=== PATIENT | male | born 1975 | race African-American/Black ===

== ENCOUNTER 2018-05-12 19:03 | Emergency (ER) | payer BC, SELFPAY ==
[2018-05-12] MEDS ORDERED: METHYLPREDNISOLONE 125 MG INJ ONE (20:50)
[2018-05-12] MEDS ORDERED: DIPHENHYDRAMINE 50 MG/ML VIAL ONE (20:51)
[2018-05-12] MEDS ORDERED: FAMOTIDINE 20 MG/2 ML VIAL IV ONE (20:51)
--- NOTE | 2018-05-12 21:38 | ER ---
Nurse's Notes [facility] Name: Luba Flowers Age: 43 yrs Sex: Male : 1975 Arrival Date: 05/12/2018 Time: 19:07 Bed 28 Private MD: None, None Diagnosis: Allergic reaction Presentation: 05/12 19:12 Presenting complaint: Patient states: Rash all over body starting on Monday, itchy. la1 Transition of care: patient was not received from another setting of care. Onset of symptoms was May 12, 2018. Risk Assessment: Do you want to hurt yourself or someone else? Patient reports no desire to harm self or others. Initial Sepsis Screen: Does the patient meet any 2 criteria? No. Patient's initial sepsis screen is negative. Does the patient have a suspected source of infection? No. Patient's initial sepsis screen is negative. Care prior to arrival: None. 19:12 Method Of Arrival: Ambulatory la1 19:12 Acuity: YOLANDA 4 la1 Historical: - Allergies: 19:13 No Known Allergies; la1 - PMHx: 19:13 Diabetes - NIDDM; Hypertension; la1 - Immunization history:: Adult Immunizations up to date. - Social history:: Smoking status: Patient/guardian denies using tobacco. - Ebola Screening: : No symptoms or risks identified at this time. Screenin:35 Abuse screen: Denies threats or abuse. Denies injuries from another. Nutritional ca1 screening: No deficits noted. 19:35 Tuberculosis screening: No symptoms or risk factors identified. Fall Risk None ca1 identified. Assessment: 19:35 General: Appears in no apparent distress. comfortable, Behavior is calm, cooperative, ca1 appropriate for age, Reports Itching all over the body. Pain: Denies pain. Neuro: Level of Consciousness is awake, alert, obeys commands, Oriented to person, place, time, situation. Cardiovascular: Heart tones S1 S2 present Capillary refill < 3 seconds Patient's skin is warm and dry. Respiratory: Airway is patent is compromised Respiratory effort is even, unlabored, Respiratory pattern is regular, symmetrical, Breath sounds are clear bilaterally. GI: No deficits noted. No signs and/or symptoms were reported involving the gastrointestinal system. : No deficits noted. No signs and/or symptoms were reported regarding the genitourinary system. EENT: No deficits noted. No signs and/or symptoms were reported regarding the EENT system. Derm: Skin Skin is pink, warm \T\ dry. Rash noted that is raised, on all over the body. Musculoskeletal: Circulation, motion, and sensation intact. Capillary refill < 3 seconds. 20:30 Reassessment: Patient appears in no apparent distress at this time. Patient and/or ca1 family updated on plan of care and expected duration. Pain level reassessed. Patient is alert, oriented x 3, equal unlabored respirations, skin warm/dry/pink. 21:36 Reassessment: Patient appears in no apparent distress at this time. Patient and/or ca1 family updated on plan of care and expected duration. Pain level reassessed. Patient is alert, oriented x 3, equal unlabored respirations, skin warm/dry/pink. Vital Signs: 19:13 BP 167 / 108; Pulse 81; Resp 18; Temp 98.7; Pulse Ox 98% on R/A; Weight 147.42 kg; la1 Height 5 ft. 11 in. (180.34 cm); 20:33 BP 163 / 87; Pulse 82; Resp 19; Pulse Ox 98% on R/A; ca1 21:10 BP 165 / 92; Pulse 78; Resp 19; Pulse Ox 96% on R/A; ca1 21:37 BP 148 / 83; Pulse 71; Resp 19; Pulse Ox 96% on R/A; ca1 19:13 Body Mass Index 45.33 (147.42 kg, 180.34 cm) la1 ED Course: 19:07 Patient arrived in ED. mr 19:07 None, None is Private Physician. mr 19:12 Triage completed. la1 19:13 Arm band placed on right wrist. la1 19:28 Jr England MD is Attending Physician. tw4 19:35 Patient has correct armband on for positive identification. Bed in low position. Call ca1 light in reach. Side rails up X 1. Pulse ox on. NIBP on. Warm blanket given. 19:35 No provider procedures requiring assistance completed. ca1 19:56 Rach Brock, RN is Primary Nurse. ca1 20:40 Inserted saline lock: 20 gauge in left hand, using aseptic technique. ca1 21:37 IV discontinued, intact, bleeding controlled, No redness/swelling at site. Pressure ca1 dressing applied. Administered Medications: 20:42 Drug: Pepcid 20 mg Route: IVP; Site: left hand; ca1 21:16 Follow up: Response: No adverse reaction ca1 20:45 Drug: SOLU-Medrol 125 mg Route: IVP; Site: left hand; ca1 21:17 Follow up: Response: No adverse reaction ca1 20:48 Drug: Benadryl 25 mg Route: IVP; Site: left hand; ca1 21:16 Follow up: Response: No adverse reaction ca1 Outcome: 21:37 Discharge ordered by . tw4 21:45 Discharged to home ambulatory, with family. ca1 21:45 Condition: stable 21:45 Discharge instructions given to patient, significant other, Instructed on discharge instructions, follow up and referral plans. medication usage, Demonstrated understanding of instructions, follow-up care, medications, Prescriptions given X 1. 21:45 Patient left the ED. ca1 Signatures: Monica Denson mr WynneMike, RN RN la1 Jr England MD MD tw4 Rach Brock RN RN ca1 Corrections: (The following items were deleted from the chart) 21:17 19:35 General: Appears in no apparent distress. comfortable, Behavior is calm, ca1 cooperative, appropriate for age, ca1 21:37 21:10 Reassessment: Patient appears in no apparent distress at this time. Patient ca1 and/or family updated on plan of care and expected duration. Pain level reassessed. Patient is alert, oriented x 3, equal unlabored respirations, skin warm/dry/pink. ca1
--- NOTE | 2018-05-12 21:38 | EDPHYS ---
Physician Documentation [facility] Name: Luba Flowers Age: 43 yrs Sex: Male : 1975 Arrival Date: 05/12/2018 Time: 19:07 Bed 28 Private MD: None, None ED Physician Jr England HPI: 05/12 20:39 This 43 yrs old Black Male presents to ER via Ambulatory with complaints of Rash. tw4 20:39 The patient's rash thought to be caused by allergies. The rash is located on the body tw4 diffusely. The rash can be described as papular. Onset: The symptoms/episode began/occurred today. Severity of symptoms: At their worst the symptoms were moderate in the emergency department the symptoms are unchanged. The patient has not experienced similar symptoms in the past. Historical: - Allergies: 19:13 No Known Allergies; la1 - PMHx: 19:13 Diabetes - NIDDM; Hypertension; la1 - Immunization history:: Adult Immunizations up to date. - Social history:: Smoking status: Patient/guardian denies using tobacco. - Ebola Screening: : No symptoms or risks identified at this time. ROS: 20:39 Constitutional: Negative for fever, chills, and weight loss, Eyes: Negative for injury, tw4 pain, redness, and discharge, ENT: Negative for injury, pain, and discharge, Cardiovascular: Negative for chest pain, palpitations, and edema, Respiratory: Negative for shortness of breath, cough, wheezing, and pleuritic chest pain, Abdomen/GI: Negative for abdominal pain, nausea, vomiting, diarrhea, and constipation, Back: Negative for injury and pain, MS/Extremity: Negative for injury and deformity. 20:39 Skin: Positive for rash. Exam: 20:39 Constitutional: This is a well developed, well nourished patient who is awake, alert, tw4 and in no acute distress. Head/Face: Normocephalic, atraumatic. Chest/axilla: Normal chest wall appearance and motion. Nontender with no deformity. No lesions are appreciated. Cardiovascular: Regular rate and rhythm with a normal S1 and S2. No gallops, murmurs, or rubs. Normal PMI, no JVD. No pulse deficits. Respiratory: Lungs have equal breath sounds bilaterally, clear to auscultation and percussion. No rales, rhonchi or wheezes noted. No increased work of breathing, no retractions or nasal flaring. Abdomen/GI: Soft, non-tender, with normal bowel sounds. No distension or tympany. No guarding or rebound. No evidence of tenderness throughout. Back: No spinal tenderness. No costovertebral tenderness. Full range of motion. 20:39 Skin: Appearance: normal except for affected area. Vital Signs: 19:13 BP 167 / 108; Pulse 81; Resp 18; Temp 98.7; Pulse Ox 98% on R/A; Weight 147.42 kg; la1 Height 5 ft. 11 in. (180.34 cm); 20:33 BP 163 / 87; Pulse 82; Resp 19; Pulse Ox 98% on R/A; ca1 21:10 BP 165 / 92; Pulse 78; Resp 19; Pulse Ox 96% on R/A; ca1 21:37 BP 148 / 83; Pulse 71; Resp 19; Pulse Ox 96% on R/A; ca1 19:13 Body Mass Index 45.33 (147.42 kg, 180.34 cm) la1 MDM: 19:28 Patient medically screened. tw4 20:40 Differential diagnosis: impetigo. Data reviewed: vital signs, nurses notes. Data tw4 interpreted: Pulse oximetry: Interpretation: normal. Counseling: I had a detailed discussion with the patient and/or guardian regarding: the historical points, exam findings, and any diagnostic results supporting the discharge/admit diagnosis. 05/12 20:50 Order name: IV Saline Lock; Complete Time: 20:51 ca1 Administered Medications: 20:42 Drug: Pepcid 20 mg Route: IVP; Site: left hand; ca1 21:16 Follow up: Response: No adverse reaction ca1 20:45 Drug: SOLU-Medrol 125 mg Route: IVP; Site: left hand; ca1 21:17 Follow up: Response: No adverse reaction ca1 20:48 Drug: Benadryl 25 mg Route: IVP; Site: left hand; ca1 21:16 Follow up: Response: No adverse reaction ca1 Disposition: 05/12/18 21:37 Discharged to Home. Impression: Allergic reaction. - Condition is Stable. - Discharge Instructions: Allergies, Adult. - Prescriptions for Medrol (Igno) 4 mg Oral Tablets, Dose Pack - take 1 tablet by ORAL route as directed - follow package instructions; 1 packet. - Medication Reconciliation Form, Thank You Letter, Antibiotic Education, Prescription Opioid Use form. - Follow up: Private Physician; When: Upon discharge from the Emergency Department; Reason: If symptoms return, Recheck today's complaints, Continuance of care. - Problem is new. - Symptoms have improved. Signatures: Mike Wynne RN RN la1 Jr England MD MD tw4 Rach Brock RN RN ca1 Corrections: (The following items were deleted from the chart) 21:45 21:37 05/12/2018 21:37 Discharged to Home. Impression: Allergic reaction. Condition is ca1 Stable. Forms are Medication Reconciliation Form, Thank You Letter, Antibiotic Education, Prescription Opioid Use. Follow up: Private Physician; When: Upon discharge from the Emergency Department; Reason: If symptoms return, Recheck today's complaints, Continuance of care. Problem is new. Symptoms have improved. tw4
== END 2018-05-12 21:45 | disposition home or self-care (01) ==
LOC: ER 19:03
DX: R21 Rash and other nonspecific skin eruption (principal); I10 Essential (primary) hypertension
CPT/HCPCS: 96374; 96375; 99284; J2930

== ENCOUNTER 2018-09-28 21:16 | Emergency (ER) | payer BC, SELFPAY ==
--- NOTE | 2018-09-28 22:01 | ER ---
Nurse's Notes [facility] Name: Luba Flowers Age: 43 yrs Sex: Male : 1975 Arrival Date: 09/28/2018 Time: 21:17 Bed 8 Private MD: Diagnosis: Balanitis Presentation: 09/28 21:24 Presenting complaint: Patient states: "I have a rash in my groin area, it was diagnosed aj1 as a yeast infection by the PA at the clinic in [place], but its inflamed and infected and since we started this lotion medication its getting worse". Transition of care: patient was not received from another setting of care. Onset of symptoms was September 28, 2018. Risk Assessment: Do you want to hurt yourself or someone else? Patient reports no desire to harm self or others. Initial Sepsis Screen: Does the patient meet any 2 criteria? No. Patient's initial sepsis screen is negative. Does the patient have a suspected source of infection? No. Patient's initial sepsis screen is negative. Care prior to arrival: None. 21:24 Method Of Arrival: Ambulatory aj1 21:24 Acuity: YOLANDA 4 aj1 Triage Assessment: 21:26 General: Appears in no apparent distress. comfortable, Behavior is calm, cooperative, aj1 appropriate for age. Pain: Complains of pain in right Achilles Pain currently is 6 out of 10 on a pain scale. Neuro: Level of Consciousness is awake, alert, obeys commands. Cardiovascular: Patient's skin is warm and dry. Respiratory: Airway is patent Respiratory effort is even, unlabored, Respiratory pattern is regular, symmetrical. Historical: - Allergies: 21:26 No Known Allergies; aj1 - Home Meds: 21:26 glyburide Oral [Active]; amlodipine 10 mg tab 1 tab once daily [Active]; Glipizide Oral aj1 [Active]; metformin 500 mg Oral Tb24 1 tab once daily [Active]; lisinopril 20 mg Oral tab 1 tab once daily [Active]; - PMHx: 21:26 Hypertension; Diabetes - NIDDM; aj1 - Immunization history:: Flu vaccine is not up to date. - Social history:: Smoking status: Patient/guardian denies using tobacco. - Ebola Screening: : Patient denies travel to an Ebola-affected area in the 21 days before illness onset. Screenin:58 Abuse screen: Denies threats or abuse. Denies injuries from another. Nutritional ak1 screening: No deficits noted. Tuberculosis screening: No symptoms or risk factors identified. Fall Risk None identified. Assessment: 21:56 General: Appears in no apparent distress. obese, Behavior is calm, cooperative. Pain: ak1 Complains of pain in pelvis. Neuro: No deficits noted. Cardiovascular: No deficits noted. Respiratory: No deficits noted. GI: No signs and/or symptoms were reported involving the gastrointestinal system. : Lesions noted on penis redness noted to head of penis, irraiation. pt with cream already applied to penis head and shaft. Reports yeast infection on penis. pt seen at [facility] and given PO meds and cream. EENT: No signs and/or symptoms were reported regarding the EENT system. Derm: No signs and/or symptoms reported regarding the dermatologic system. Musculoskeletal: No signs and/or symptoms reported regarding the musculoskeletal system. Vital Signs: 21:26 BP 192 / 100; Pulse 69; Resp 18; Temp 98.1; Pulse Ox 100% on R/A; Weight 151.95 kg (R); aj1 Height 5 ft. 11 in. (180.34 cm) (R); Pain 6/10; 21:58 BP 155 / 104; Pulse 77; Resp 18; Pulse Ox 97% on R/A; ak1 21:26 Body Mass Index 46.72 (151.95 kg, 180.34 cm) aj1 ED Course: 21:17 Patient arrived in ED. ds1 21:25 Triage completed. aj1 21:25 Radha Houser FNP-C is [facility]. snw 21:25 Steven Esposito MD is Attending Physician. snw 21:26 Arm band placed on Patient placed in an exam room. aj1 21:45 Sierra Alvarez, IVELISSE is Primary Nurse. ak1 21:58 Patient has correct armband on for positive identification. Placed in gown. Bed in low ak1 position. Call light in reach. Side rails up X 1. Adult w/ patient. Pulse ox on. NIBP on. 21:58 chaperoned visual exam of pt's penis. ak1 22:12 Patient did not have IV access during this emergency room visit. ak1 Administered Medications: 22:10 Drug: DiFLUcan 200 mg Route: PO; ak1 22:10 Follow up: Response: No adverse reaction; Medication administered at discharge. ak1 Outcome: 22:00 Discharge ordered by . georges 22:11 Discharged to home ambulatory, with family. ak1 22:11 Condition: good 22:11 Discharge instructions given to patient, family, Instructed on discharge instructions, follow up and referral plans. no drinking with medication, no driving heavy equipment, medication usage, Demonstrated understanding of instructions. 22:12 Patient left the ED. ak1 Signatures: Ros Bro, RN RN aj1 Radha Houser, ASPHALT ROLLER OPERATOR-C ASPHALT ROLLER OPERATOR-Csnw Rose Larsen ds1 Sierra Alvarez RN RN ak1
--- NOTE | 2018-09-28 22:01 | EDPHYS ---
Physician Documentation [facility] Name: Luba Flowers Age: 43 yrs Sex: Male : 1975 Arrival Date: 09/28/2018 Time: 21:17 Bed 8 Private MD: ED Physician Steven Esposito HPI: 09/28 22:28 This 43 yrs old Black Male presents to ER via Ambulatory with complaints of Rash. snw 22:28 The patient's rash thought to be caused by yeast infection, pt with diabetes. The rash snw is located on the penis. The rash can be described as pustular. Onset: The symptoms/episode began/occurred 1 week(s) ago, and became persistent. Severity of symptoms: At their worst the symptoms were moderate in the emergency department the symptoms are unchanged. Treatment given at home: using lotrimin AF and A\T\D. It is unknown whether or not the patient has had similar symptoms in the past. The patient has been recently seen by a physician: the patient's primary care provider, with similar presenting complaints, dx with balanitis, given oral fluconazole x two tabs and lotrimin AF. Historical: - Allergies: 21:26 No Known Allergies; aj1 - Home Meds: 21:26 glyburide Oral [Active]; amlodipine 10 mg tab 1 tab once daily [Active]; Glipizide Oral aj1 [Active]; metformin 500 mg Oral Tb24 1 tab once daily [Active]; lisinopril 20 mg Oral tab 1 tab once daily [Active]; - PMHx: 21:26 Hypertension; Diabetes - NIDDM; aj1 - Immunization history:: Flu vaccine is not up to date. - Social history:: Smoking status: Patient/guardian denies using tobacco. - Ebola Screening: : Patient denies travel to an Ebola-affected area in the 21 days before illness onset. ROS: 22:28 Constitutional: Negative for fever, chills, and weight loss, Eyes: Negative for injury, snw pain, redness, and discharge, ENT: Negative for injury, pain, and discharge, Neck: Negative for injury, pain, and swelling, Cardiovascular: Negative for chest pain, palpitations, and edema, Respiratory: Negative for shortness of breath, cough, wheezing, and pleuritic chest pain, Abdomen/GI: Negative for abdominal pain, nausea, vomiting, diarrhea, and constipation, Back: Negative for injury and pain, MS/Extremity: Negative for injury and deformity, Skin: Negative for injury, rash, and discoloration, Neuro: Negative for headache, weakness, numbness, tingling, and seizure. 22:28 : Positive for penile pain, rash. Exam: 22:27 Constitutional: This is a well developed, well nourished patient who is awake, alert, snw and in no acute distress. Head/Face: Normocephalic, atraumatic. Eyes: Pupils equal round and reactive to light, extra-ocular motions intact. Lids and lashes normal. Conjunctiva and sclera are non-icteric and not injected. Cornea within normal limits. Periorbital areas with no swelling, redness, or edema. ENT: Nares patent. No nasal discharge, no septal abnormalities noted. Tympanic membranes are normal and external auditory canals are clear. Oropharynx with no redness, swelling, or masses, exudates, or evidence of obstruction, uvula midline. Mucous membranes moist. Neck: Trachea midline, no thyromegaly or masses palpated, and no cervical lymphadenopathy. Supple, full range of motion without nuchal rigidity, or vertebral point tenderness. No Meningismus. Chest/axilla: Normal chest wall appearance and motion. Nontender with no deformity. No lesions are appreciated. Cardiovascular: Regular rate and rhythm with a normal S1 and S2. No gallops, murmurs, or rubs. Normal PMI, no JVD. No pulse deficits. Respiratory: Lungs have equal breath sounds bilaterally, clear to auscultation and percussion. No rales, rhonchi or wheezes noted. No increased work of breathing, no retractions or nasal flaring. Abdomen/GI: Soft, non-tender, with normal bowel sounds. No distension or tympany. No guarding or rebound. No evidence of tenderness throughout. Back: No spinal tenderness. No costovertebral tenderness. Full range of motion. Male : Normal genitalia with no discharge, shaft of penis with itching, tiny pustules, consistent with yeast, moist, irritated. uncomfortable. RN chapperleno Skin: Warm, dry with normal turgor. Normal color with no rashes, no lesions, and no evidence of cellulitis. MS/ Extremity: Pulses equal, no cyanosis. Neurovascular intact. Full, normal range of motion. Neuro: Awake and alert, GCS 15, oriented to person, place, time, and situation. Cranial nerves II-XII grossly intact. Motor strength 5/5 in all extremities. Sensory grossly intact. Cerebellar exam normal. Normal gait. Vital Signs: 21:26 BP 192 / 100; Pulse 69; Resp 18; Temp 98.1; Pulse Ox 100% on R/A; Weight 151.95 kg (R); aj1 Height 5 ft. 11 in. (180.34 cm) (R); Pain 6/10; 21:58 BP 155 / 104; Pulse 77; Resp 18; Pulse Ox 97% on R/A; ak1 21:26 Body Mass Index 46.72 (151.95 kg, 180.34 cm) aj1 MDM: 21:29 Patient medically screened. snw 22:31 Data reviewed: vital signs, nurses notes. Data interpreted: Pulse oximetry: on room air snw is 97 %. Interpretation: normal. Counseling: I had a detailed discussion with the patient and/or guardian regarding: the historical points, exam findings, and any diagnostic results supporting the discharge/admit diagnosis, the need for outpatient follow up, to return to the emergency department if symptoms worsen or persist or if there are any questions or concerns that arise at home. Special discussion: I have referred the patient to see his PCP for further evaluation of high blood pressure. Based on the history and exam findings, there is no indication for further emergent testing or inpatient evaluation. I discussed with the patient/guardian the need to see the wool hat hydraulicker for further evaluation of the symptoms. I discussed with the patient/guardian the need to see the primary care provider for further evaluation of the symptoms. Administered Medications: 22:10 Drug: DiFLUcan 200 mg Route: PO; ak1 22:10 Follow up: Response: No adverse reaction; Medication administered at discharge. ak1 Disposition: 09/29 01:10 Co-signature as Attending Physician, Steven Esposito MD. pkl Disposition: 09/28/18 22:00 Discharged to Home. Impression: Balanitis. - Condition is Stable. - Discharge Instructions: Balanitis, How to Take a Sitz Bath. - Medication Reconciliation Form, Thank You Letter, Antibiotic Education, Prescription Opioid Use form. - Follow up: Private Physician; When: 2 - 3 days; Reason: Recheck today's complaints, Continuance of care, Re-evaluation by your physician. Follow up: Emergency Department; When: As needed; Reason: Worsening of condition. - Notes: keep area dry, cotton underwear only, no powders, try to keep bloodsugar in normal range Signatures: Ros Bro, RN RN aj1 Steven Esposito MD MD pkl Radha Houser, BUSINESS RELATIONS MANAGER-C BUSINESS RELATIONS MANAGER-Csnw Sierra Alvarez, RN RN ak1 Corrections: (The following items were deleted from the chart) 09/28 22:12 22:00 09/28/2018 22:00 Discharged to Home. Impression: Balanitis. Condition is Stable. ak1 Forms are Medication Reconciliation Form, Thank You Letter, Antibiotic Education, Prescription Opioid Use. Follow up: Private Physician; When: 2 - 3 days; Reason: Recheck today's complaints, Continuance of care, Re-evaluation by your physician. Follow up: Emergency Department; When: As needed; Reason: Worsening of condition. snw
[2018-09-28] MEDS ORDERED: FLUCONAZOLE 100 MG TAB ONE (22:04)
== END 2018-09-28 22:12 | disposition home or self-care (01) ==
LOC: ER 21:16
DX: N48.1 Balanitis (principal); I10 Essential (primary) hypertension; E11.9 Type 2 diabetes mellitus without complications
CPT/HCPCS: 99283

== ENCOUNTER 2018-11-13 19:23 | Emergency (ER) | payer BC ==
[2018-11-13] MEDS ORDERED: NA CHLORIDE 0.9% 500 ML ONE (19:54)
[2018-11-13] MEDS ORDERED: HYDROCODONE/APAP 10/325 TAB ONE (20:51)
[2018-11-13] MEDS ORDERED: predniSONE 20 MG TAB ONE (20:51)
--- NOTE | 2018-11-13 20:54 | ER ---
Nurse's Notes [facility] Name: Luba Flowers Age: 43 yrs Sex: Male : 1975 Arrival Date: 11/13/2018 Time: 19:29 Bed 28 Private MD: Diagnosis: Gout Presentation: 11/13 19:39 Presenting complaint: Patient states: "I had a gout flare up that started on Monday"; lp1 Swelling to right hand, pain relieved with Aleve at home but no improvement in swelling. Transition of care: patient was not received from another setting of care. Onset of symptoms was November 13, 2018. Risk Assessment: Do you want to hurt yourself or someone else? Patient reports no desire to harm self or others. Initial Sepsis Screen: Does the patient meet any 2 criteria? No. Patient's initial sepsis screen is negative. Does the patient have a suspected source of infection? No. Patient's initial sepsis screen is negative. Care prior to arrival: None. 19:39 Method Of Arrival: Ambulatory lp1 19:39 Acuity: YOLANDA 4 lp1 Historical: - Allergies: 19:42 No Known Allergies; lp1 - Home Meds: 19:42 amlodipine 10 mg tab 1 tab once daily [Active]; Glipizide Oral [Active]; Glyburide Oral lp1 [Active]; lisinopril 20 mg Oral tab 1 tab once daily [Active]; metformin 500 mg Oral Tb24 1 tab once daily [Active]; allopurinol Oral [Active]; - PMHx: 19:42 Diabetes - NIDDM; Hypertension; Gout; lp1 - PSHx: 19:42 None; lp1 - Immunization history:: Adult Immunizations up to date. - Social history:: Smoking status: Patient/guardian denies using tobacco. - Ebola Screening: : No symptoms or risks identified at this time. Screenin:42 Abuse screen: Denies threats or abuse. Denies injuries from another. Nutritional lp1 screening: No deficits noted. Tuberculosis screening: No symptoms or risk factors identified. Fall Risk None identified. Assessment: 20:32 General: Appears in no apparent distress. uncomfortable, Behavior is calm, cooperative, aj1 appropriate for age. Pain: Complains of pain in right hand Pain does not radiate. Pain currently is 8 out of 10 on a pain scale. Neuro: Level of Consciousness is awake, alert, obeys commands, Oriented to person, place, time, situation. Cardiovascular: Patient's skin is warm and dry. Respiratory: Airway is patent Respiratory effort is even, unlabored, Respiratory pattern is regular, symmetrical. GI: No signs and/or symptoms were reported involving the gastrointestinal system. : No signs and/or symptoms were reported regarding the genitourinary system. EENT: No signs and/or symptoms were reported regarding the EENT system. Derm: Skin is normal. Musculoskeletal: Swelling present in right hand Denies any recent injury to his hand. Reports that he has a history of gout and this feels similar to previous episodes. 21:16 Reassessment: Patient appears in no apparent distress at this time. No changes from aj1 previously documented assessment. Patient and/or family updated on plan of care and expected duration. Pain level reassessed. Patient is alert, oriented x 3, equal unlabored respirations, skin warm/dry/pink. Vital Signs: 19:42 BP 195 / 105; Pulse 86; Resp 18; Temp 98.8; Pulse Ox 98% on R/A; Weight 154.22 kg (R); lp1 Height 5 ft. 11 in. (180.34 cm); Pain 9/10; 19:42 Body Mass Index 47.42 (154.22 kg, 180.34 cm) lp1 ED Course: 19:29 Patient arrived in ED. mr 19:40 Triage completed. lp1 19:40 Arm band placed on right wrist. lp1 20:25 Bipin Plata MD is Attending Physician. gs 20:32 Ros Bro, IVELISSE is Primary Nurse. aj1 20:32 Patient has correct armband on for positive identification. Bed in low position. Call aj1 light in reach. 20:32 No provider procedures requiring assistance completed. aj1 21:16 Patient did not have IV access during this emergency room visit. aj1 Administered Medications: 21:02 Not Given (Patient Refused): [place] 10 mg-325 mg 1 tabs PO once; RASS on ADMIN: Combtv4, aj1 Very Agttd3, Agttd2, Rstlss1, AlertClm0, Drwsy-1, Lt Sdtn-2, Mod Sdtn-3, Dp Sdtn-4, UnArsble-5 21:02 Drug: predniSONE 40 mg Route: PO; aj1 21:18 Follow up: Response: No adverse reaction aj1 21:03 Drug: Motrin 600 mg Route: PO; aj1 21:18 Follow up: Response: No adverse reaction aj1 Outcome: 20:53 Discharge ordered by . gs 21:17 Discharged to home ambulatory. aj1 21:17 Condition: good 21:17 Discharge instructions given to patient, Instructed on discharge instructions, follow up and referral plans. medication usage, Demonstrated understanding of instructions, follow-up care, medications, Prescriptions given X 1, Patient states that he does not want the Rx for Tylenol #3, so that Rx was shredded 21:18 Patient left the ED. aj1 Signatures: Ros Bro RN RN aj1 Monica Denson Laura, RN RN lp1 Bipin Plata MD MD
--- NOTE | 2018-11-13 20:54 | EDPHYS ---
Physician Documentation [facility] Name: Luba Flowers Age: 43 yrs Sex: Male : 1975 Arrival Date: 11/13/2018 Time: 19:29 Bed 28 Private MD: ED Physician Bipin Plata HPI: 11/13 20:47 This 43 yrs old Black Male presents to ER via Ambulatory with complaints of Hand Pain. gs 20:47 The patient or guardian reports pain, swelling. The complaints affect the right hand gs diffusely. Context: resulted from SIMILAR TO PREVIOUS GOUT FLARE. Onset: The symptoms/episode began/occurred yesterday. Modifying factors: The symptoms are alleviated by nothing, the symptoms are aggravated by nothing. Associated signs and symptoms: Pertinent negatives: fever, numbness distally. Severity of symptoms: At their worst the symptoms were moderate, in the emergency department the symptoms are unchanged. The patient has experienced similar episodes in the past, several times. Historical: - Allergies: 19:42 No Known Allergies; lp1 - Home Meds: 19:42 amlodipine 10 mg tab 1 tab once daily [Active]; Glipizide Oral [Active]; Glyburide Oral lp1 [Active]; lisinopril 20 mg Oral tab 1 tab once daily [Active]; metformin 500 mg Oral Tb24 1 tab once daily [Active]; allopurinol Oral [Active]; - PMHx: 19:42 Diabetes - NIDDM; Hypertension; Gout; lp1 - PSHx: 19:42 None; lp1 - Immunization history:: Adult Immunizations up to date. - Social history:: Smoking status: Patient/guardian denies using tobacco. - Ebola Screening: : No symptoms or risks identified at this time. ROS: 20:47 All other systems are negative. gs Exam: 20:47 Head/Face: Normocephalic, atraumatic. Eyes: Pupils equal round and reactive to light, gs extra-ocular motions intact. Lids and lashes normal. Conjunctiva and sclera are non-icteric and not injected. Cornea within normal limits. Periorbital areas with no swelling, redness, or edema. Cardiovascular: Regular rate and rhythm with a normal S1 and S2. No gallops, murmurs, or rubs. Normal PMI, no JVD. No pulse deficits. Respiratory: Lungs have equal breath sounds bilaterally, clear to auscultation and percussion. No rales, rhonchi or wheezes noted. No increased work of breathing, no retractions or nasal flaring. Skin: Warm, dry with normal turgor. Normal color with no rashes, no lesions, and no evidence of cellulitis. Neuro: Awake and alert, GCS 15, oriented to person, place, time, and situation. Cranial nerves II-XII grossly intact. Motor strength 5/5 in all extremities. Sensory grossly intact. Cerebellar exam normal. Normal gait. 20:47 Constitutional: The patient appears alert, awake. 20:47 Musculoskeletal/extremity: Extremities: noted in the dorsum of right hand: swelling, ROM: intact in all extremities, Pulses: are normal with no appreciated deficits, Sensation intact. Vital Signs: 19:42 BP 195 / 105; Pulse 86; Resp 18; Temp 98.8; Pulse Ox 98% on R/A; Weight 154.22 kg (R); lp1 Height 5 ft. 11 in. (180.34 cm); Pain 9/10; 19:42 Body Mass Index 47.42 (154.22 kg, 180.34 cm) lp1 MDM: 20:40 Patient medically screened. gs 20:47 Differential diagnosis: tendonitis, GOUT. Data reviewed: vital signs, nurses notes. gs Counseling: I had a detailed discussion with the patient and/or guardian regarding: the historical points, exam findings, and any diagnostic results supporting the discharge/admit diagnosis, the need for outpatient follow up. Administered Medications: 21:02 Not Given (Patient Refused): [place] 10 mg-325 mg 1 tabs PO once; RASS on ADMIN: Combtv4, aj1 Very Agttd3, Agttd2, Rstlss1, AlertClm0, Drwsy-1, Lt Sdtn-2, Mod Sdtn-3, Dp Sdtn-4, UnArsble-5 21:02 Drug: predniSONE 40 mg Route: PO; aj1 21:18 Follow up: Response: No adverse reaction aj1 21:03 Drug: Motrin 600 mg Route: PO; aj1 21:18 Follow up: Response: No adverse reaction aj1 Disposition: 11/13/18 20:53 Discharged to Home. Impression: Gout. - Condition is Stable. - Discharge Instructions: Gout, [id number]. - Prescriptions for Prednisone 20 mg Oral Tablet - take 1 tablet by ORAL route once daily for 5 days; 5 tablet. Tylenol- Codeine #4 300-60 mg Oral Tablet - take 1 tablet by ORAL route every 6 hours As needed; 8 tablet. - Medication Reconciliation Form, Thank You Letter, Antibiotic Education, Prescription Opioid Use form. - Follow up: Private Physician; When: 2 - 3 days; Reason: Re-evaluation by your physician. - Notes: RESTART YOUR ALLOPURINOL Signatures: Ros Bro RN RN aj1 Monica Santacruz RN RN lp1 Bipin Plata MD MD Corrections: (The following items were deleted from the chart) 21:18 20:53 11/13/2018 20:53 Discharged to Home. Impression: Gout. Condition is Stable. Forms aj1 are Medication Reconciliation Form, Thank You Letter, Antibiotic Education, Prescription Opioid Use. Follow up: Private Physician; When: 2 - 3 days; Reason: Re-evaluation by your physician. gs
[2018-11-13] MEDS ORDERED: IBUPROFEN 200 MG TAB PO ONE (21:02)
[2018-11-13 22:10] VITALS: BP 195/105; TEMP 98.8; O2SAT 98
== END 2018-11-13 21:18 | disposition home or self-care (01) ==
LOC: ER 19:23
DX: M10.9 Gout, unspecified (principal); E11.9 Type 2 diabetes mellitus without complications; I10 Essential (primary) hypertension
CPT/HCPCS: J7512

== ENCOUNTER 2019-01-18 17:31 | Emergency (ER) | payer BC ==
[2019-01-18] MEDS ORDERED: FLUORESCEIN SODIUM 1 MG/WRAP ONE (20:40)
[2019-01-18] MEDS ORDERED: TETRACAINE HCL 0.5% 4ML OPTH ONE (20:40)
--- NOTE | 2019-01-18 20:59 | ER ---
Nurse's Notes [facility] Name: Luba Flowers Age: 43 yrs Sex: Male : 1975 Arrival Date: 01/18/2019 Time: 17:34 Bed 10 Private MD: Diagnosis: Other acute conjunctivitis;Acute sinusitis, unspecified Presentation: 01/18 19:10 Presenting complaint: Patient states: "I have had facial swelling for a little over a jd3 week and just in the last couple of days, my eyes have been swelling too.". Transition of care: patient was not received from another setting of care. Onset of symptoms was January 18, 2019. Risk Assessment: Do you want to hurt yourself or someone else? Patient reports no desire to harm self or others. Initial Sepsis Screen: Does the patient meet any 2 criteria? No. Patient's initial sepsis screen is negative. Does the patient have a suspected source of infection? No. Patient's initial sepsis screen is negative. Care prior to arrival: None. 19:10 Method Of Arrival: Ambulatory jd3 19:10 Acuity: YOLANDA 4 jd3 Historical: - Allergies: 19:12 No Known Allergies; jd3 - Home Meds: 19:12 Allopurinol Oral [Active]; amlodipine 10 mg tab 1 tab once daily [Active]; Glipizide jd3 Oral [Active]; Glyburide Oral [Active]; lisinopril 20 mg Oral tab 1 tab once daily [Active]; metformin 500 mg Oral Tb24 1 tab once daily [Active]; - PMHx: 19:12 Diabetes - NIDDM; Gout; Hypertension; jd3 - PSHx: 19:12 None; jd3 - Immunization history:: Adult Immunizations up to date. - Social history:: Smoking status: Patient/guardian denies using tobacco, but has a distant history of tobacco abuse. - Ebola Screening: : Patient negative for fever greater than or equal to 101.5 degrees Fahrenheit, and additional compatible Ebola Virus Disease symptoms. Screenin:30 Abuse screen: Denies threats or abuse. Nutritional screening: No deficits noted. bb Tuberculosis screening: No symptoms or risk factors identified. Fall Risk None identified. Assessment: 19:30 General: Appears uncomfortable, Behavior is calm, cooperative. Pain: Complains of pain bb in right eye and left eye. Neuro: Level of Consciousness is awake, alert, obeys commands, Oriented to person, place, time, situation. Cardiovascular: No deficits noted. Respiratory: Airway is patent Respiratory effort is even, unlabored, Respiratory pattern is regular. GI: No deficits noted. EENT: Eyes bilateral swelling and redness to conjunctiva with tearing. Derm: Skin is dry, Skin is normal, Skin temperature is warm. Musculoskeletal: Circulation, motion, and sensation intact. 20:47 Reassessment: No changes from previously documented assessment. Bebo CHOUDHURY at bedside for eye exam. Vital Signs: 19:12 BP 164 / 102; Pulse 77; Resp 20 S; Temp 98.0(O); Pulse Ox 98% on R/A; Weight 151.95 kg j (R); Height 5 ft. 11 in. (180.34 cm) (R); Pain 9/10; 19:12 Body Mass Index 46.72 (151.95 kg, 180.34 cm) [facility] ED Course: 17:34 Patient arrived in ED. cl3 19:11 Triage completed. jd3 19:13 Arm band placed on. jd3 19:26 Bebo Solitario PA is PHCP. [facility] 19:26 Alexis Verma MD is Attending Physician. [facility] 19:30 Patient has correct armband on for positive identification. Call light in reach. Adult bb w/ patient. 20:47 Assist provider with eye exam of both eyes. using fluorescein stain, Performed by Bebo CHOUDHURY. 21:16 Patient did not have IV access during this emergency room visit. eb1 Administered Medications: 20:43 Drug: Tetracaine Drops 0.5 % 1 drops Route: Ophthalmic; Site: both eyes; bb Outcome: 20:58 Discharge ordered by . bertram 21:15 Discharged to home with family. eb1 21:15 Condition: good 21:15 Discharge instructions given to patient, Instructed on discharge instructions, Demonstrated understanding of instructions, follow-up care, medications, Prescriptions given X 2. 21:16 Patient left the ED. eb1 Signatures: Bebo Solitario PA PA jmm Ballard, Brenda, RN RN bb Davies, Jonathon, RN RN jd3 Basinger, Emily, RN RN eb1 Lionel, Charde cl3
--- NOTE | 2019-01-18 20:59 | EDPHYS ---
Physician Documentation [facility] Name: Luba Flowers Age: 43 yrs Sex: Male : 1975 Arrival Date: 01/18/2019 Time: 17:34 Bed 10 Private MD: ED Physician Alexis Verma HPI: 01/18 20:53 This 43 yrs old Black Male presents to ER via Ambulatory with complaints of Eye jmm Swelling. 20:53 The patient is experiencing redness. Onset: The symptoms/episode began/occurred jmm gradually, 2 day(s) ago. Duration: the symptoms are continuous. This is a 43 year old male with a history of dm, gout, htn that presents to the ED with complaints of eye drainage and redness for 2 days. Patient also complains of 1 week of sinus congestion and pressure. . Historical: - Allergies: 19:12 No Known Allergies; jd3 - Home Meds: 19:12 Allopurinol Oral [Active]; amlodipine 10 mg tab 1 tab once daily [Active]; Glipizide jd3 Oral [Active]; Glyburide Oral [Active]; lisinopril 20 mg Oral tab 1 tab once daily [Active]; metformin 500 mg Oral Tb24 1 tab once daily [Active]; - PMHx: 19:12 Diabetes - NIDDM; Gout; Hypertension; jd3 - PSHx: 19:12 None; jd3 - Immunization history:: Adult Immunizations up to date. - Social history:: Smoking status: Patient/guardian denies using tobacco, but has a distant history of tobacco abuse. - Ebola Screening: : Patient negative for fever greater than or equal to 101.5 degrees Fahrenheit, and additional compatible Ebola Virus Disease symptoms. ROS: 20:53 Constitutional: Negative for fever, chills, and weight loss, Cardiovascular: Negative jmm for chest pain, palpitations, and edema, Respiratory: Negative for shortness of breath, cough, wheezing, and pleuritic chest pain. 20:53 Eyes: Positive for discharge, itching, pain, redness. 20:53 ENT: Positive for rhinorrhea, sinus congestion. 20:53 All other systems are negative. Exam: 20:53 Constitutional: This is a well developed, well nourished patient who is awake, alert, jmm and in no acute distress. Head/Face: atraumatic. 20:53 Chest/axilla: Normal chest wall appearance and motion. Cardiovascular: Regular rate and rhythm. No edema appreciated Respiratory: Normal respirations, no respiratory distress appreciated Abdomen/GI: Non distended, soft Back: Normal ROM Skin: General appearance color normal MS/ Extremity: Moves all extremities, no obvious deformities appreciated, no edema noted to the lower extremities Neuro: Awake and alert, normal gait Psych: Behavior is normal, Mood is normal, Patient is cooperative and pleasant 20:53 Head/face: Sinus tenderness, that is mild, is located over the right maxillary sinus and left maxillary sinus. 20:53 Eyes: Extraocular movements: no acute changes, Conjunctiva: exudate, in the right eye, in the left eye, injected, bilaterally, Intraocular pressure: right eye = 21mmHg, left eye = 13mmHg. 20:53 ENT: Posterior pharynx: is normal. Vital Signs: 19:12 BP 164 / 102; Pulse 77; Resp 20 S; Temp 98.0(O); Pulse Ox 98% on R/A; Weight 151.95 kg jd3 (R); Height 5 ft. 11 in. (180.34 cm) (R); Pain 9/10; 19:12 Body Mass Index 46.72 (151.95 kg, 180.34 cm) jd3 MDM: 19:47 Patient medically screened. [facility] 20:56 Data reviewed: vital signs, nurses notes. Counseling: I had a detailed discussion with bertram the patient and/or guardian regarding: the historical points, exam findings, and any diagnostic results supporting the discharge/admit diagnosis, the need for outpatient follow up, to return to the emergency department if symptoms worsen or persist or if there are any questions or concerns that arise at home. ED course: Patient is alert and non toxic in appearance in the ED. Most likely conjunctivitis. Patient states he has glaucoma in the right eye. Advised to follow up with optho and otherwise given strict return precautions. Patient understood and agrees with the plan of care. . 01/18 20:37 Order name: Eye Tray; Complete Time: 20:44 bertram 01/18 20:37 Order name: Fluoresene Opth strip; Complete Time: 20:44 jimmie Administered Medications: 20:43 Drug: Tetracaine Drops 0.5 % 1 drops Route: Ophthalmic; Site: both eyes; bb Disposition: 01/18/19 20:58 Discharged to Home. Impression: Other acute conjunctivitis, Acute sinusitis, unspecified. - Condition is Stable. - Discharge Instructions: Bacterial Conjunctivitis, Viral Conjunctivitis. - Prescriptions for Augmentin 875- 125 mg Oral Tablet - take 1 tablet by ORAL route every 12 hours for 10 days; 20 tablet. Erythromycin 5 mg/gram (0.5 %) Ophthalmic Ointment - apply 1 ribbon by OPHTHALMIC route every 8 hours; 1 tube. - Medication Reconciliation Form, Thank You Letter, Antibiotic Education, Prescription Opioid Use form. - Follow up: Private Physician; When: 2 - 3 days; Reason: Recheck today's complaints, Continuance of care, Re-evaluation by your physician. Addendum: 01/21/2019 10:39 Co-signature as Attending Physician, Alexis Verma MD I agree with the assessment and c juarez plan of care. Signatures: Alexis Verma MD MD cha Mickail, Joel, PA PA jmm Ballard, Brenda RN RN Jim Hsieh RN RN jd3 Heidi Grossman RN RN eb1 Corrections: (The following items were deleted from the chart) 01/18 21:16 20:58 01/18/2019 20:58 Discharged to Home. Impression: Other acute conjunctivitis; eb1 Acute sinusitis, unspecified. Condition is Stable. Forms are Medication Reconciliation Form, Thank You Letter, Antibiotic Education, Prescription Opioid Use. Follow up: Private Physician; When: 2 - 3 days; Reason: Recheck today's complaints, Continuance of care, Re-evaluation by your physician. bertram
[2019-01-19 02:56] VITALS: BP 164/102; TEMP 98; O2SAT 98
== END 2019-01-18 21:16 | disposition home or self-care (01) ==
LOC: ER 17:31
DX: H10.30 Unspecified acute conjunctivitis, unspecified eye (principal); J01.90 Acute sinusitis, unspecified; I10 Essential (primary) hypertension; E11.9 Type 2 diabetes mellitus without complications
CPT/HCPCS: 99283

== ENCOUNTER 2021-01-02 10:21 | Emergency (ER) | payer BC, SELFPAY ==
[2021-01-02] MEDS ORDERED: COLCHICINE 0.6 MG TAB ONE (10:33)
--- NOTE | 2021-01-02 11:35 | RAD REPORT ---
EXAM DESCRIPTION: RAD - Knee Left 3 View - 01/02/2021 11:05 am CLINICAL HISTORY: PAIN COMPARISON: Knee Left 3 View dated 01/15/2016 FINDINGS: No fracture, dislocation or periosteal reaction.Small to moderate suprapatellar joint effu tova seen. This is similar to the 2016 study. Small calcifications present at the origin of the velazquez lar tendon noted. These have enlarged since 2016 but are not acute. No joint space narrowing. No soft tissue abnormality. No significant change seen from the comparison. IMPRESSION: Small to moderate joint effusion without acute bone finding. Clinical concerns for internal derangement or occult bony injury could be further assessed with MR im aging.
--- NOTE | 2021-01-02 11:37 | ER ---
Nurse's Notes [facility] Name: Luba Flowers Age: 45 yrs Sex: Male : 1975 Arrival Date: 01/02/2021 Time: 10:24 Bed 5 Private MD: Diagnosis: Pain in left knee Presentation: 01/02 10:37 Chief complaint: EMS states: I am having left knee pain for about 4 days now. it feels jd3 similar to a previous gout flair up.". Coronavirus screen: At this time, the client does not indicate any symptoms associated with coronavirus-19. Ebola Screen: Patient negative for fever greater than or equal to 101.5 degrees Fahrenheit, and additional compatible Ebola Virus Disease symptoms. Initial Sepsis Screen: Does the patient meet any 2 criteria? No. Patient's initial sepsis screen is negative. Does the patient have a suspected source of infection? No. Patient's initial sepsis screen is negative. Risk Assessment: Do you want to hurt yourself or someone else? Patient reports no desire to harm self or others. Onset of symptoms was December 29, 2020. 10:37 Method Of Arrival: Ambulatory jd3 10:37 Acuity: YOLANDA 4 jd3 Triage Assessment: 10:36 General: Appears distressed, uncomfortable, obese, Behavior is calm, cooperative, bp appropriate for age. Pain: Complains of pain in left knee. EENT: No deficits noted. Neuro: No deficits noted. Cardiovascular: No deficits noted. Respiratory: No deficits noted. GI: No signs and/or symptoms were reported involving the gastrointestinal system. : No signs and/or symptoms were reported regarding the genitourinary system. Derm: No deficits noted. Musculoskeletal: Swelling present in left knee. Historical: - Allergies: 10:39 No Known Allergies; jd3 - Home Meds: 10:39 lisinopril 20 mg Oral tab 1 tab once daily [Active]; metformin 500 mg Oral Tb24 1 tab jd3 once daily [Active]; Allopurinol Oral [Active]; - PMHx: 10:39 Diabetes - NIDDM; Gout; Hypertension; jd3 - PSHx: 10:39 None; jd3 - Immunization history:: Adult Immunizations up to date, Client reports receiving the 2nd dose of the Covid vaccine, Date received: November 13, 2020. - Social history:: Smoking status: Patient denies any tobacco usage or history of. Screenin:36 Abuse screen: Denies threats or abuse. Denies injuries from another. Nutritional bp screening: No deficits noted. Tuberculosis screening: No symptoms or risk factors identified. Fall Risk None identified. Assessment: 10:40 General: SEE TRIAGE NOTE. bp 11:36 Reassessment: RAD RESULTS PENDING. bp 12:28 Reassessment: PT D/C HOME AMBULATORY WITH FAMILY, DX WITH LEFT KNEE PAIN AND GOUT. bp Vital Signs: 10:40 BP 140 / 101; Pulse 86; Resp 17 S; Temp 98.0(TE); Pulse Ox 99% on R/A; Weight 136.08 kg jd3 (R); Height 5 ft. 11 in. (180.34 cm) (R); Pain 8/10; 11:35 BP 118 / 83; Pulse 89; Resp 15; Pulse Ox 95% ; bp 12:28 BP 124 / 92; Pulse 83; Resp 16; Temp 98; Pulse Ox 97% ; bp 10:40 Body Mass Index 41.84 (136.08 kg, 180.34 cm) jd3 ED Course: 10:24 Patient arrived in ED. as 10:27 Mel Butts FNP-C [facility]. kb 10:27 Alexis Verma MD is Attending Physician. kb 10:33 Matthew Olivares, IVELISSE is Primary Nurse. bp 10:38 Triage completed. jd3 10:38 Arm band placed on. bp 11:05 Knee Left 3 View XRAY In Process Unspecified. EDMS 11:36 Patient has correct armband on for positive identification. Bed in low position. Call bp light in reach. Side rails up X2. 12:28 No provider procedures requiring assistance completed. Patient did not have IV access bp during this emergency room visit. Administered Medications: 10:36 Drug: Colcrys (colchicine) 1.2 mg Route: PO; bp 11:35 Follow up: Response: Pain is decreased bp Outcome: 11:37 Discharge ordered by . kb 12:28 Discharged to home ambulatory, with family. bp 12:28 Condition: stable 12:28 Discharge instructions given to patient, Instructed on discharge instructions, follow up and referral plans. medication usage, Demonstrated understanding of instructions, follow-up care, medications, Prescriptions given X 2. 12:32 Patient left the ED. bp Signatures: Dispatcher [employer] EDMS Mel Butts, DILLON MCWILLIAMS-Maricel Drake Jonathon, RN RN jd3 Matthew Olivares RN RN bp Corrections: (The following items were deleted from the chart) 10:39 10:39 Home Meds: Glipizide Oral; jd3 jd3
--- NOTE | 2021-01-02 11:37 | EDPHYS ---
Physician Documentation [facility] Name: Luba Flowers Age: 45 yrs Sex: Male : 1975 Arrival Date: 01/02/2021 Time: 10:24 Bed 5 Private MD: ED Physician Alexis Verma HPI: 01/02 11:03 This 45 yrs old Black Male presents to ER via Ambulatory with complaints of Knee Pain - kb swelling. 11:03 The patient presents with pain, swelling. The complaints affect the left knee. Context: kb resulted from gout, the patient can fully bear weight, the patient is able to ambulate. Onset: The symptoms/episode began/occurred 4 day(s) ago. Modifying factors: The symptoms are alleviated by nothing. the symptoms are aggravated by weight bearing. Associated signs and symptoms: Pertinent positives: swelling, Pertinent negatives calf tenderness, fever, nausea, numbness, rash, tingling, vomiting, warmth, weakness. Treatment prior to arrival includes: no previous treatment. Severity of symptoms: At their worst the symptoms were moderate, in the emergency department the symptoms are unchanged. The patient has not experienced similar symptoms in the past. The patient has not recently seen a physician. Pt reports knee pain for 4 days. States it swells intermittently. Feels like similar episodes of gout he has had. Historical: - Allergies: 10:39 No Known Allergies; jd3 - Home Meds: 10:39 lisinopril 20 mg Oral tab 1 tab once daily [Active]; metformin 500 mg Oral Tb24 1 tab jd3 once daily [Active]; Allopurinol Oral [Active]; - PMHx: 10:39 Diabetes - NIDDM; Gout; Hypertension; jd3 - PSHx: 10:39 None; jd3 - Immunization history:: Adult Immunizations up to date, Client reports receiving the 2nd dose of the Covid vaccine, Date received: November 13, 2020. - Social history:: Smoking status: Patient denies any tobacco usage or history of. ROS: 11:02 Constitutional: Negative for fever, chills, and weight loss. kb 11:02 MS/extremity: Positive for pain, swelling, of the left knee. 11:02 All other systems are negative. Exam: 11:02 Constitutional: This is a well developed, well nourished patient who is awake, alert, kb and in no acute distress. Head/Face: Normocephalic, atraumatic. ENT: Moist Mucous membranes Cardiovascular: Regular rate and rhythm with a normal S1 and S2. No gallops, murmurs, or rubs. No pulse deficits. Respiratory: Respirations even and unlabored. No increased work of breathing, no retractions or nasal flaring. Abdomen/GI: Soft, non-tender. No distention Skin: Warm, dry with normal turgor. Normal color. Neuro: Awake and alert, GCS 15, oriented to person, place, time, and situation. Moves all extremities. Normal gait. Psych: Awake, alert, with orientation to person, place and time. Behavior, mood, and affect are within normal limits. 11:02 Musculoskeletal/extremity: Extremities: grossly normal except: noted in the left knee: pain, swelling, ROM: intact in all extremities, Circulation is intact in all extremities. Sensation intact. Weight bearing: able to fully bear weight. Vital Signs: 10:40 BP 140 / 101; Pulse 86; Resp 17 S; Temp 98.0(TE); Pulse Ox 99% on R/A; Weight 136.08 kg jd3 (R); Height 5 ft. 11 in. (180.34 cm) (R); Pain 8/10; 11:35 BP 118 / 83; Pulse 89; Resp 15; Pulse Ox 95% ; bp 12:28 BP 124 / 92; Pulse 83; Resp 16; Temp 98; Pulse Ox 97% ; bp 10:40 Body Mass Index 41.84 (136.08 kg, 180.34 cm) jd3 MDM: 10:29 Patient medically screened. kb 11:02 Data reviewed: vital signs, nurses notes. Data interpreted: Pulse oximetry: on room air kb is 99 %. Interpretation: normal. 11:37 Counseling: I had a detailed discussion with the patient and/or guardian regarding: the kb historical points, exam findings, and any diagnostic results supporting the discharge/admit diagnosis, radiology results, the need for outpatient follow up, a family practitioner, to return to the emergency department if symptoms worsen or persist or if there are any questions or concerns that arise at home. 11:40 Response to treatment: the patient's symptoms have markedly improved after treatment. kb ED course: Pt requests colchicine prescription. 01/02 10:32 Order name: Knee Left 3 View XRAY; Complete Time: 11:36 kb Administered Medications: 10:36 Drug: Colcrys (colchicine) 1.2 mg Route: PO; bp 11:35 Follow up: Response: Pain is decreased bp Disposition: 01/03 03:43 Co-signature as Attending Physician, Alexis Verma MD I agree with the assessment and esteban plan of care. Disposition Summary: 01/02/21 11:37 Discharge Ordered Location: Home kb Condition: Stable kb Diagnosis - Pain in left knee kb Followup: kb - With: Emergency Department - When: As needed - Reason: Worsening of condition Followup: kb - With: Private Physician - When: 2 - 3 days - Reason: Recheck today's complaints, Continuance of care, Re-evaluation by your physician Discharge Instructions: - Discharge Summary Sheet kb - Gout, [id number] kb Forms: - Medication Reconciliation Form kb - Thank You Letter kb - Antibiotic Education kb - Prescription Opioid Use kb - Work release form eb Prescriptions: - indomethacin 25 mg Oral capsule - take 1 capsule by ORAL route 3 times per day As needed with food; 21 capsule; kb Refills: 0, Product Selection Permitted - Colcrys 0.6 mg Oral tablet - take 1 tablet by ORAL route as directed; 2 tablet; Refills: 0, Product kb Selection Permitted Signatures: Dispatcher [employer] Mel Thomas, COMMUNITY COORDINATOR-C COMMUNITY COORDINATOR-Alexis Villaseñor MD MD cha Davies, Jonathon, RN RN Matthew Dinh RN RN bp Corrections: (The following items were deleted from the chart) 01/02 10:39 10:39 Home Meds: Glipizide Oral; fernando king
[2021-01-02 12:41] VITALS: BP 124/92; TEMP 98; O2SAT 97
== END 2021-01-02 12:32 | disposition home or self-care (01) ==
LOC: ER 10:21
DX: M25.562 Pain in left knee (principal); E11.9 Type 2 diabetes mellitus without complications; I10 Essential (primary) hypertension; M10.9 Gout, unspecified
CPT/HCPCS: 99283